=== PATIENT | female | born 1965 | race African-American/Black ===

== ENCOUNTER 2022-09-24 23:06 | Emergency (ER) | payer MEDICAID ==
[~2022-09-24] VITALS: Ht 149.9 cm; Wt 65.8 kg
--- NOTE | 2022-09-24 23:15 | NUR ---
After being traiged, patient was placed in hallway due to no beds available in the ER at this time.
[2022-09-25 01:27] LABS: HEMATOCRIT 36.7 % (31.2-41.9); MEAN CORPUSCULAR HEMOGLOBIN 34.2 uug (24.7-32.8); MEAN CORPUSCULAR VOLUME 103.4 fL (75.5-95.3); PLATELET COUNT (AUTO) 236 K/uL (179-408)
[2022-09-25] MEDS ORDERED: ALBUTEROL SULFATE 2.5 MG/3 ML NEBU ONE (01:28)
[2022-09-25] MEDS ORDERED: IPRATROPIUM BROMIDE 0.5 MG/2.5 ML NEBU ONE (01:28)
[2022-09-25] MEDS ORDERED: ALBUTEROL SULFATE 2.5 MG/3 ML NEBU NEB ONE (01:30)
[2022-09-25] MEDS ORDERED: IPRATROPIUM BROMIDE 0.5 MG/2.5 ML NEBU NEB ONE (01:30)
[2022-09-25 02:10] LABS: CARBON DIOXIDE 33 mmol/L (21-32); CHLORIDE 101 mmol/L (98-107); CREATININE 1.6 mg/dL (0.6-1.3); GLUCOSE 108 mg/dL (74-106); POTASSIUM 3.7 mmol/L (3.5-5.1); UREA NITROGEN, BLOOD 24 mg/dL (7-18)
[2022-09-25 02:18] LABS: ALANINE AMINOTRANSFERASE 25 U/L (14-59); ALKALINE PHOSPHATASE 94 U/L (50-136); ASPARTATE AMINOTRANSFERASE 28 U/L (15-37); BILIRUBIN,DIRECT < 0.1 mg/dL (0.0-0.2); BILIRUBIN,TOTAL 0.2 mg/dL (0.2-1.0); TOTAL PROTEIN, SERUM 7.3 g/dL (6.4-8.2)
[2022-09-25] MEDS ORDERED: AMOX-430 PO (04:17)
[2022-09-25] MEDS ORDERED: AZIT250T PO (04:17)
--- NOTE | 2022-09-25 04:21 | NUR ---
pt. is discharged. but asked if she can stay for to nap until ready
[2022-09-25 04:33] VITALS: BP 110/80
== END 2022-09-25 04:33 | disposition home or self-care (01) ==
LOC: ER 23:06
DX: J20.9 Acute bronchitis, unspecified (principal); N28.9 Disorder of kidney and ureter, unspecified; Z20.822 Contact with and (suspected) exposure to COVID-19; Z85.118 Personal history of other malignant neoplasm of bronchus and lung; Z85.51 Personal history of malignant neoplasm of bladder; Z90.5 Acquired absence of kidney
CPT/HCPCS: 36415; 71045; 84484; 85025; 85730; A4663; J3590